=== PATIENT | female | born 1955 ===

== ENCOUNTER 2018-03-15 09:06 | Emergency (ER) | payer OTHER ==
[2018-03-15] MEDS ORDERED: Acetaminophen TAB* 325 MG PO ONE (10:21)
--- NOTE | 2018-03-15 10:27 | ED ---
Upper Extremity Pain - HPI Summary HPI Summary: [id number] patient presents with right shoulder pain since Friday. She reports gradual onset that she noticed while typing at work. This worsened both Friday and Friday nights. Denies numbness, tingling or weakness but reports pain is worse with flexion and abduction as well as rotation. Feels best with elbow flexed at 90 degrees and arm close to her body. She is still able to move her fingers, wrist and elbow without limitation however supination/ pronation and elbow extension and flexion irritate her shoulder somewhat. Denies acute injury or unusual activities with this extremity. She has history of left rotator cuff tendinitis years ago. This improved with NSAID's and physical therapy. - History of Current Complaint Chief Complaint: UCUpperExtremity Stated Complaint: R SHOULDER COMPLAINT Time Seen by Provider: 03/15/18 10:09 Hx Obtained From: Patient - Allergies/Home Medications Allergies/Adverse Reactions: Allergies Allergy/AdvReac Type Severity Reaction Status Date / Time No Known Allergies Allergy Verified 03/15/18 10:07 Home Medications: Home Medications Albuterol HFA INHALER* [Ventolin HFA Inhaler*] 03/15/18 [History] Amlodipine Besylate/Benazepril [Lotrel 5-10 mg Capsule] 03/15/18 [History] Montelukast Sodium TAB* [Singulair 10 MG TAB*] 03/15/18 [History] Simvastatin 03/15/18 [History] PMH/Surg Hx/FS Hx/Imm Hx Previously Healthy: Yes Endocrine/Hematology History: Denies: Hx Anticoagulant Therapy, Hx Blood Disorders Cardiovascular History: Reports: Hx Hypertension - controlled w/ 1 med Respiratory History: Reports: Hx Asthma Musculoskeletal History: Reports: Other Musculoskeletal History - Lt shoulder rotator cuff tendonitis "years ago" - resolved w/ PT Denies: Hx Arthritis Sensory History: Reports: Hx Contacts or Glasses Opthamlomology History: Reports: Hx Contacts or Glasses Infectious Disease History: No Infectious Disease History: Denies: Traveled Outside the [place] in Last 30 Days - Social History Occupation: Employed Full-time - business development executive Alcohol Use: Occasionally Hx Substance Use: No Substance Use Type: Reports: None Hx Tobacco Use: No Smoking Status (MU): Never Smoked Tobacco Review of Systems Constitutional: Negative Eyes: Negative ENT: Negative Cardiovascular: Negative Respiratory: Negative Gastrointestinal: Negative Positive: no symptoms reported Positive: Arthralgia, Decreased ROM - d/t pain Skin: Negative Neurological: Negative Psychological: Normal All Other Systems Reviewed And Are Negative: Yes Physical Exam Triage Information Reviewed: Yes Vital Signs On Initial Exam: Initial Vitals Temp Pulse Resp BP Pulse Ox 98.9 F 96 16 143/74 97 03/15/18 10:00 03/15/18 10:00 03/15/18 10:00 03/15/18 10:00 03/15/18 10:00 Vital Signs Reviewed: Yes Appearance: Positive: Well-Appearing, No Pain Distress - at rest - pain w/ movements of Lt shoulder however she is able to passively flex by leaning on table and peforming pendulum movements Skin: Positive: Warm, Skin Color Reflects Adequate Perfusion, Dry - no ecchymosis, no lesions Head/Face: Positive: Normal Head/Face Inspection Eyes: Positive: EOMI ENT: Positive: Hearing grossly normal Cardiovascular: Positive: Pulses are Symmetrical in both Upper and Lower Extremities - no edema Musculoskeletal: Positive: Strength/ROM Intact - phalanges, wrist, elbow, Limited @ - RT shoulder limited flexion/abduction/rotation d/t pain -better w/ supported/passive flexion, Other - shoulder and biceps tendon NTTP Neurological: Positive: Normal, Sensory/Motor Intact, Alert, Oriented to Person Place, Time, CN Intact II-III Psychiatric: Positive: Normal Diagnostics - Vital Signs Vital Signs Temp Pulse Resp BP Pulse Ox 03/15/18 10:00 98.9 F 96 16 143/74 97 - Laboratory Lab Statement: Any lab studies that have been ordered have been reviewed, and results considered in the medical decision making process. Course/Dx - Course Course Of Treatment: Shoulder XR: "1. Calcification overlying the superior lateral aspect of the humeral head at the expected location of the supraspinatous tendon - could be calcific tendonosis vs. calcium in the subdeltoid bursa. 2. Degenerative joint disease of the right acromioclavicular joint.". May benefit from PT for arthritis but also steroid injection if no relief. - Diagnoses Provider Diagnoses: Right shoulder tendinitis, Degenerative arthritis of right shoulder region Discharge - Sign-Out/Discharge Documenting (check all that apply): Patient Departure All imaging exams completed and their final reports reviewed: Yes - Discharge Plan Condition: Stable Disposition: HOME Patient Education Materials: Tendinitis (ED) Forms: *Work Release Referrals: Ivy Strange MD [Primary Care Provider] - Additional Instructions: You appear to have tendinitis. This may be treated with rest, heat followed by gentle stretches as described here today followed by ice. You may also take acetaminophen 600 mg every 6 hours as needed for pain. (NOTE: ibuprofen/ naproxen may render your blood pressure medication ineffective). Additionally, you may try topical analgesic such as Biofreeze, BenGay, etc. as desired for pain relief. It is important you follow up with physical therapy. You may self refer or have your primary care prior to refer you - call tomorrow to schedule. Follow-up with your PCP 2 weeks after starting PT sessions to see if you are improving. If not you may need further intervention which your primary care provider will help you with. *If in the meantime you develop numbness, tingling, weakness, intractable pain despite recommendations mentioned, follow-up with PCP or go to the emergency department. - Billing Disposition and Condition Condition: STABLE Disposition: Home
== END 2018-03-15 11:05 | disposition home or self-care (01) ==
LOC: UCEAST 09:06
DX: M75.91 Shoulder lesion, unspecified, right shoulder (principal); M19.011 Primary osteoarthritis, right shoulder; I10 Essential (primary) hypertension; J45.909 Unspecified asthma, uncomplicated; Z79.899 Other long term (current) drug therapy; X58.XXXA Exposure to other specified factors, initial encounter; Y92.9 Unspecified place or not applicable
CPT/HCPCS: 99201; A9270-GY; G0463